=== PATIENT | female | born 1940 | race American Indian/Alaskan Native ===

== ENCOUNTER 2024-10-23 09:30 | Outpatient (CLI) | payer OTHER ==
[~2024-10-23 09:30] MED LIST: ASA81 MG; VYTORIN 10/20 M1 TAB; ZOCOR20 MG
== END 2024-10-23 09:31 | disposition home or self-care (01) ==
LOC: TOM 09:30
PROVIDERS: ATTEND Internal Medicine
DX: K46.9 Unspecified abdominal hernia without obstruction or gangrene (principal); E78.9 Disorder of lipoprotein metabolism, unspecified; I10 Essential (primary) hypertension